=== PATIENT | male | born 1990 | race Two or more races ===

== ENCOUNTER 2017-03-01 02:48 | Emergency (ER) | payer SELFPAY ==
[2017-03-01 02:58] VITALS: BP 148/79
[2017-03-01] MEDS ORDERED: ONDANSETRON 4 MG TAB.RAPDIS PO ONE (03:06)
--- NOTE | 2017-03-01 03:08 | ER Document Report ---
ED GI/ - General Chief Complaint: Abdominal Pain Stated Complaint: STOMACH PAIN Time Seen by Provider: 03/01/17 03:02 Notes: Patient is a 26-year-old male who comes emergency department for chief complaint of vomiting and diarrhea. He has vomited 8 times, he states he has had diarrhea almost every 15 minutes. He denies dizziness or lightheadedness. He denies fever or chills. He denies blood in the stool or emesis. He just got back from [place] where he was visiting family. He denies other people with the same symptoms. He denies any particular area of abdominal pain. He denies any surgeries or past medical history. TRAVEL OUTSIDE OF THE [place] IN LAST 30 DAYS: Yes - [place] - Related Data Allergies/Adverse Reactions: No Known Allergies Allergy (Unverified 03/01/17 02:57) Past Medical History - General Information source: Patient - Social History Smoking Status: Never Smoker Frequency of alcohol use: Occasional Drug Abuse: None Lives with: Alone Family History: Reviewed & Not Pertinent Patient has suicidal ideation: No Patient has homicidal ideation: No - Medical History Medical History: Negative Renal/ Medical History: Denies: Hx Peritoneal Dialysis Surgical Hx: Negative - Immunizations Immunizations up to date: Yes Hx Diphtheria, Pertussis, Tetanus Vaccination: Yes Review of Systems - Review of Systems Constitutional: No symptoms reported EENT: No symptoms reported Cardiovascular: No symptoms reported Respiratory: No symptoms reported Gastrointestinal: See HPI Genitourinary: No symptoms reported Male Genitourinary: No symptoms reported Musculoskeletal: No symptoms reported Skin: No symptoms reported Hematologic/Lymphatic: No symptoms reported Neurological/Psychological: No symptoms reported Physical Exam - Vital signs Vitals: Temp Pulse Resp BP Pulse Ox 98.2 F 80 18 148/79 H 97 03/01/17 02:54 03/01/17 02:54 03/01/17 02:54 03/01/17 02:54 03/01/17 02:54 Interpretation: Normal - General General appearance: Appears well, Alert In distress: None - HEENT Head: Normocephalic, Atraumatic Eyes: Normal Pupils: PERRL - Respiratory Respiratory status: No respiratory distress Chest status: Nontender Breath sounds: Normal. No: Decreased air movement, Wheezing Chest palpation: Normal - Cardiovascular Rhythm: Regular. No: Tachycardia Heart sounds: Normal auscultation, S1 appreciated, S2 appreciated Murmur: No - Abdominal Inspection: Normal Distension: No distension Bowel sounds: Normal Tenderness: Nontender - completely non-tender abdomen. No: Tender, Guarding Organomegaly: No organomegaly - Back Back: Normal, Nontender - Extremities General upper extremity: Normal inspection, Nontender, Normal color, Normal ROM , Normal temperature General lower extremity: Normal inspection, Nontender, Normal color, Normal ROM , Normal temperature, Normal weight bearing. No: Remi's sign - Neurological Neuro grossly intact: Yes Cognition: Normal Orientation: AAOx4 [place] Coma Scale Eye Opening: Spontaneous [place] Coma Scale Verbal: Oriented [place] Coma Scale Motor: Obeys Commands [place] Coma Scale Total: 15 Speech: Normal Motor strength normal: LUE, RUE, LLE, RLE Sensory: Normal - Psychological Associated symptoms: Normal affect, Normal mood - Skin Skin Temperature: Warm Skin Moisture: Dry Skin Color: Normal Course - Re-evaluation Re-evalutation: Patient well-appearing, has soft abdomen, not tachycardic, still has moist mucous membranes. Vomiting and diarrhea after coming home from [place]. Will check chemistry, check stool. Patient told nursing staff he had to leave to get something out of his truck. Patient has not returned. Appears to have eloped. - Vital Signs Vital signs: Temp Pulse Resp BP Pulse Ox 98.2 F 80 18 148/79 H 97 03/01/17 02:54 03/01/17 02:54 03/01/17 02:54 03/01/17 02:54 03/01/17 02:54 Discharge - Discharge Clinical Impression: Nausea vomiting and diarrhea Condition: Stable Disposition: ELOPED
== END 2017-03-01 04:00 | disposition left against medical advice (07) ==
LOC: ER 02:48
DX: R11.2 Nausea with vomiting, unspecified (principal); R19.7 Diarrhea, unspecified; R10.9 Unspecified abdominal pain; Z53.20 Procedure and treatment not carried out because of patient's decision for unspecified reasons
CPT/HCPCS: 99281